=== PATIENT | male | born 1955 | race Caucasian/White ===

== ENCOUNTER → 2023-05-19 06:41 | Outpatient (REF) | payer MEDICARE, SELFPAY | LOC: MRI 06:41 | PROVIDERS: ATTENDING PHYSICIAN Physician Assistant Surgical; FAMILY PHYSICIAN Registered Nurse | DX: Z96.652 Presence of left artificial knee joint (principal) | CPT/HCPCS: 73721 ==

== ENCOUNTER → 2023-06-09 08:33 | Outpatient (REF) | payer MEDICARE, SELFPAY ==
[2023-06-09 10:34] LABS: PSA, Total - Diagnostic 7.39 ng/ml (0.0-4.0)
== END ==
LOC: REG 08:33
PROVIDERS: ATTENDING PHYSICIAN Specialist; FAMILY PHYSICIAN Registered Nurse
DX: R97.20 Elevated prostate specific antigen [PSA] (principal)
CPT/HCPCS: 36415; 84153

== ENCOUNTER → 2023-06-30 07:49 | Outpatient (REF) | payer MEDICARE, SELFPAY ==
[2023-06-30 09:19] LABS: % Basophils 0.8 % (0-2); % Eosinophils 3.2 % (0-6); % Immature Granulocytes 0.2 % (0-0.5); % Lymphocytes 24.2 % (20.5-51.1); % Monocytes 10.8 % (1.7-9.3); % Neutrophils 60.8 % (42.2-75.2); Absolute Eosinophils 0.2 10^3/uL (0-0.7); Absolute Lymphocytes 1.2 10^3/uL (1.2-3.4); Absolute Monocytes 0.5 10^3/uL (0.1-0.6); Hematocrit 39.9 % (39.0-52.0); Hemoglobin 14.1 g/dL (13.0-18.0); Mean Corp Hgb Conc. 35.3 g/dL (33.0-37.0); Mean Corpuscular Hgb 30.7 pg (27.0-31.0); Mean Corpuscular Volume 86.7 fL (80.0-94.0); Mean Platelet Volume 9.6 fL (7.4-10.4); Nucleated Red Blood Cells % 0 % (-); Platelet Count 215 10^3/uL (130-400); Red Cell Dist. Width 12.7 % (11.5-14.5)
[2023-06-30 10:03] LABS: ALT (SGPT) 22 U/L (0-50); AST (SGOT) 29 U/L (17-59); Albumin 4.1 g/dl (3.5-5.0); Alkaline Phosphatase 52 U/L (38-126); Blood Urea Nitrogen 23 mg/dl (9-20); Calcium 9.4 mg/dl (8.4-10.2); Carbon Dioxide 31 mmol/L (22-30); Chloride 101 mmol/L (98-107); Glucose 105 mg/dl (70-99); HDL Cholesterol 53 mg/dl; LDL Cholesterol, Calculated 104 mg/dl; Potassium 4.7 mmol/L (3.5-5.1); Sodium 138 mmol/L (135-145); Total Bilirubin 1.1 mg/dl (0.2-1.3); Total Cholesterol 176 mg/dl (50-199); Total Protein 6.1 g/dl (6.3-8.2); Triglyceride 99 mg/dl (10-149); Very Low Density Lipoprotein 19 mg/dl (0-30); eGFR > 60.00
[2023-06-30 10:20] LABS: Vitamin D, 25-OH*** 58.1 ng/mL (30-80)
[2023-06-30 10:33] LABS: PSA, Total - Screen 8.51 ng/ml (0.0-4.0); TSH Reflex To Free T4 1.52 uIU/ml (0.47-4.68)
== END ==
LOC: REG 07:49
PROVIDERS: ATTENDING PHYSICIAN Registered Nurse
DX: E78.5 Hyperlipidemia, unspecified (principal); E55.9 Vitamin D deficiency, unspecified; R73.01 Impaired fasting glucose; Z80.42 Family history of malignant neoplasm of prostate; Z12.5 Encounter for screening for malignant neoplasm of prostate
CPT/HCPCS: 36415; 80053; 80061; 82306; 84443; 85025; G0103

== ENCOUNTER → 2023-08-18 07:52 | Outpatient (REF) | payer MEDICARE, SELFPAY ==
[2023-08-18 09:24] LABS: C-Reactive Protein < 5.00 mg/L (0.0-10.00)
[2023-08-18 11:12] LABS: Erythrocyte Sed Rate 11 mm/hour (0-20)
[2023-08-18 14:57] LABS: Rheumatoid Agglutinin Less Than 10 IU (<10 IU)
[2023-08-19 20:51] LABS: ANA, IgG Reflex to HEp-2 Detected (None Detected)
[2023-08-20 01:48] LABS: CCP Antibody IgG/IgA 4 Units (0-19)
[2023-08-20 21:39] LABS: ANA, HEp-2, IgG <1:80 (<1:80)
== END ==
LOC: REG 07:52
PROVIDERS: ATTENDING PHYSICIAN Registered Nurse
DX: M19.049 Primary osteoarthritis, unspecified hand (principal)
CPT/HCPCS: 36415; 73120; 85652; 86038; 86039; 86140; 86200; 86430

== ENCOUNTER → 2023-12-12 07:30 | Outpatient (REF) | payer MEDICARE, SELFPAY ==
[2023-12-12 09:35] LABS: PSA, Total - Diagnostic 8.87 ng/ml (0.0-4.0)
== END ==
LOC: REG 07:30
PROVIDERS: ATTENDING PHYSICIAN Specialist; FAMILY PHYSICIAN Registered Nurse
DX: R97.20 Elevated prostate specific antigen [PSA] (principal)
CPT/HCPCS: 36415; 84153

== ENCOUNTER → 2024-03-15 18:58 | Outpatient (REF) | payer MEDICARE, SELFPAY | LOC: MRI 18:58 | PROVIDERS: ATTENDING PHYSICIAN Family Medicine; FAMILY PHYSICIAN Registered Nurse | DX: R51.9 Headache, unspecified (principal) | CPT/HCPCS: 70551 ==

== ENCOUNTER → 2024-03-16 09:31 | Outpatient (REF) | payer MEDICARE, SELFPAY ==
[2024-03-16 10:03] LABS: % Basophils 0.9 % (0-2); % Eosinophils 1.7 % (0-6); % Immature Granulocytes 0.3 % (0-0.5); % Lymphocytes 24.1 % (20.5-51.1); % Monocytes 10.7 % (1.7-9.3); % Neutrophils 62.3 % (42.2-75.2); Absolute Basophils 0.1 10^3/uL (0-0.2); Absolute Eosinophils 0.1 10^3/uL (0-0.7); Absolute Lymphocytes 1.5 10^3/uL (1.2-3.4); Absolute Monocytes 0.7 10^3/uL (0.1-0.6); Absolute Neutrophils 3.9 10^3/uL (1.4-6.5); Hematocrit 44.1 % (39.0-52.0); Hemoglobin 15.2 g/dL (13.0-18.0); Mean Corp Hgb Conc. 34.5 g/dL (33.0-37.0); Mean Corpuscular Hgb 30.8 pg (27.0-31.0); Mean Corpuscular Volume 89.3 fL (80.0-94.0); Mean Platelet Volume 8.7 fL (7.4-10.4); Nucleated Red Blood Cells % 0 % (-); Platelet Count 234 10^3/uL (130-400); Red Blood Cell Count 4.94 10^6/uL (4.70-6.10); Red Cell Dist. Width 12.7 % (11.5-14.5); White Blood Cell Count 6.3 10^3/uL (4.8-10.8)
[2024-03-16 11:04] LABS: Erythrocyte Sed Rate 1 mm/hour (0-20)
[2024-03-16 15:11] LABS: ALT (SGPT) 31 U/L (0-50); AST (SGOT) 27 U/L (17-59); Albumin 4.9 g/dl (3.5-5.0); Alkaline Phosphatase 49 U/L (38-126); Blood Urea Nitrogen 22 mg/dl (9-20); Calcium 9.9 mg/dl (8.4-10.2); Carbon Dioxide 29 mmol/L (22-30); Chloride 101 mmol/L (98-107); Glucose 88 mg/dl (70-99); Potassium 4.6 mmol/L (3.5-5.1); Sodium 140 mmol/L (135-145); Total Bilirubin 0.9 mg/dl (0.2-1.3); Total Protein 7.2 g/dl (6.3-8.2); eGFR > 60.00
[2024-03-16 15:15] LABS: C-Reactive Protein < 5.00 mg/L (0.0-10.00)
[2024-03-18 11:41] LABS: Lyme Antibody Screen, EIA Negative (Negative)
== END ==
LOC: REG 09:31
PROVIDERS: ATTENDING PHYSICIAN Family Medicine
DX: R51.9 Headache, unspecified (principal)
CPT/HCPCS: 36415; 80053; 85025; 85652; 86140; 86618

== ENCOUNTER → 2024-05-04 09:10 | Outpatient (REF) | payer MEDICARE, SELFPAY ==
[2024-05-04 10:01] LABS: % Basophils 1.3 % (0-2); % Eosinophils 2.2 % (0-6); % Immature Granulocytes 0.4 % (0-0.5); % Lymphocytes 31.6 % (20.5-51.1); % Monocytes 11.7 % (1.7-9.3); % Neutrophils 52.8 % (42.2-75.2); Absolute Basophils 0.1 10^3/uL (0-0.2); Absolute Eosinophils 0.1 10^3/uL (0-0.7); Absolute Lymphocytes 1.4 10^3/uL (1.2-3.4); Absolute Monocytes 0.5 10^3/uL (0.1-0.6); Absolute Neutrophils 2.4 10^3/uL (1.4-6.5); Hematocrit 41.8 % (39.0-52.0); Hemoglobin 14.1 g/dL (13.0-18.0); Mean Corp Hgb Conc. 33.7 g/dL (33.0-37.0); Mean Corpuscular Hgb 30.1 pg (27.0-31.0); Mean Corpuscular Volume 89.3 fL (80.0-94.0); Mean Platelet Volume 9.4 fL (7.4-10.4); Nucleated Red Blood Cells % 0 % (-); Platelet Count 220 10^3/uL (130-400); Red Blood Cell Count 4.68 10^6/uL (4.70-6.10); Red Cell Dist. Width 13.2 % (11.5-14.5); White Blood Cell Count 4.5 10^3/uL (4.8-10.8)
[2024-05-04 10:35] LABS: ALT (SGPT) 31 U/L (0-50); AST (SGOT) 32 U/L (17-59); Alkaline Phosphatase 52 U/L (38-126); Blood Urea Nitrogen 16 mg/dl (9-20); Calcium 9.3 mg/dl (8.4-10.2); Carbon Dioxide 31 mmol/L (22-30); Chloride 101 mmol/L (98-107); Glucose 80 mg/dl (70-99); Potassium 4.8 mmol/L (3.5-5.1); Sodium 140 mmol/L (135-145); Total Bilirubin 1.2 mg/dl (0.2-1.3); Total Protein 7.2 g/dl (6.3-8.2); eGFR > 60.00
[2024-05-04 11:02] LABS: PSA, Total - Diagnostic 8.82 ng/ml (0.0-4.0)
== END ==
LOC: REG 09:10
PROVIDERS: ATTENDING PHYSICIAN Specialist; FAMILY PHYSICIAN Specialist; OTHER PHYSICIAN Registered Nurse; REFERRING PHYSICIAN Internal Medicine Rheumatology
DX: R97.20 Elevated prostate specific antigen [PSA] (principal); Z01.818 Encounter for other preprocedural examination; M25.50 Pain in unspecified joint; Z51.81 Encounter for therapeutic drug level monitoring
CPT/HCPCS: 36415; 80053; 84153; 85025; 93005

== ENCOUNTER → 2024-07-06 08:48 | Outpatient (REF) | payer MEDICARE, SELFPAY ==
[2024-07-06 09:36] LABS: % Eosinophils 2.1 % (0-6); % Immature Granulocytes 0.2 % (0-0.5); % Lymphocytes 29.9 % (20.5-51.1); % Neutrophils 55.8 % (42.2-75.2); Absolute Basophils 0.1 10^3/uL (0-0.2); Absolute Eosinophils 0.1 10^3/uL (0-0.7); Absolute Lymphocytes 1.4 10^3/uL (1.2-3.4); Absolute Monocytes 0.5 10^3/uL (0.1-0.6); Absolute Neutrophils 2.7 10^3/uL (1.4-6.5); Hematocrit 43.4 % (39.0-52.0); Hemoglobin 14.8 g/dL (13.0-18.0); Mean Corp Hgb Conc. 34.1 g/dL (33.0-37.0); Mean Corpuscular Hgb 30.3 pg (27.0-31.0); Mean Corpuscular Volume 88.8 fL (80.0-94.0); Nucleated Red Blood Cells % 0 % (-); Platelet Count 244 10^3/uL (130-400); Red Blood Cell Count 4.89 10^6/uL (4.70-6.10); Red Cell Dist. Width 12.2 % (11.5-14.5); White Blood Cell Count 4.8 10^3/uL (4.8-10.8)
[2024-07-06 10:45] LABS: ALT (SGPT) 23 U/L (0-50); AST (SGOT) 21 U/L (17-59); Albumin 4.8 g/dl (3.5-5.0); Alkaline Phosphatase 63 U/L (38-126); Blood Urea Nitrogen 30 mg/dl (9-20); Calcium 9.9 mg/dl (8.4-10.2); Carbon Dioxide 27 mmol/L (22-30); Chloride 105 mmol/L (98-107); Glucose 99 mg/dl (70-99); HDL Cholesterol 47 mg/dl; LDL Cholesterol, Calculated 144 mg/dl; Potassium 4.4 mmol/L (3.5-5.1); Sodium 141 mmol/L (135-145); Total Bilirubin 0.7 mg/dl (0.2-1.3); Total Cholesterol 211 mg/dl (50-199); Total Protein 6.7 g/dl (6.3-8.2); Triglyceride 100 mg/dl (10-149); Very Low Density Lipoprotein 20 mg/dl (0-30); eGFR > 60.00
[2024-07-06 10:49] LABS: Vitamin D, 25-OH*** 70.7 ng/mL (30-80)
[2024-07-06 11:02] LABS: PSA, Total - Screen 9.57 ng/ml (0.0-4.0); TSH Reflex To Free T4 1.46 uIU/ml (0.47-4.68)
[2024-07-06 11:12] LABS: Glycohemoglobin (HgbA1c) 5.6 % (4.0-5.6)
== END ==
LOC: REG 08:48
PROVIDERS: ATTENDING PHYSICIAN Registered Nurse; OTHER PHYSICIAN Specialist
DX: E78.5 Hyperlipidemia, unspecified (principal); I10 Essential (primary) hypertension; E55.9 Vitamin D deficiency, unspecified; R73.01 Impaired fasting glucose; Z12.5 Encounter for screening for malignant neoplasm of prostate
CPT/HCPCS: 36415; 80053; 80061; 82306; 83036; 84443; 85025; G0103

== ENCOUNTER → 2024-09-01 10:16 | Outpatient (REF) | payer MEDICARE, SELFPAY | LOC: MRI 10:16 | PROVIDERS: ATTENDING PHYSICIAN Specialist; FAMILY PHYSICIAN Registered Nurse | DX: M25.522 Pain in left elbow (principal) | CPT/HCPCS: 73221 ==

== ENCOUNTER → 2024-09-13 08:35 | Outpatient (REF) | payer MEDICARE, SELFPAY ==
[2024-09-13 09:14] LABS: % Basophils 1.4 % (0-2); % Eosinophils 3.5 % (0-6); % Immature Granulocytes 0.3 % (0-0.5); % Monocytes 11.6 % (1.7-9.3); % Neutrophils 50.2 % (42.2-75.2); Absolute Basophils 0.1 10^3/uL (0-0.2); Absolute Eosinophils 0.1 10^3/uL (0-0.7); Absolute Lymphocytes 1.2 10^3/uL (1.2-3.4); Absolute Monocytes 0.4 10^3/uL (0.1-0.6); Absolute Neutrophils 1.9 10^3/uL (1.4-6.5); Hematocrit 41.8 % (39.0-52.0); Hemoglobin 14.4 g/dL (13.0-18.0); Mean Corp Hgb Conc. 34.4 g/dL (33.0-37.0); Mean Corpuscular Hgb 30.4 pg (27.0-31.0); Mean Corpuscular Volume 88.2 fL (80.0-94.0); Mean Platelet Volume 9.3 fL (7.4-10.4); Nucleated Red Blood Cells % 0 % (-); Platelet Count 217 10^3/uL (130-400); Red Blood Cell Count 4.74 10^6/uL (4.70-6.10); Red Cell Dist. Width 12.7 % (11.5-14.5); White Blood Cell Count 3.7 10^3/uL (4.8-10.8)
[2024-09-13 11:34] LABS: ALT (SGPT) 21 U/L (0-50); AST (SGOT) 22 U/L (17-59); Albumin 4.5 g/dl (3.5-5.0); Alkaline Phosphatase 49 U/L (38-126); Blood Urea Nitrogen 22 mg/dl (9-20); Calcium 9.9 mg/dl (8.4-10.2); Carbon Dioxide 28 mmol/L (22-30); Chloride 106 mmol/L (98-107); Glucose 87 mg/dl (70-99); Sodium 140 mmol/L (135-145); Total Bilirubin 0.7 mg/dl (0.2-1.3); Total Protein 6.6 g/dl (6.3-8.2); eGFR > 60.00
== END ==
LOC: REG 08:35
PROVIDERS: ATTENDING PHYSICIAN Internal Medicine Rheumatology; FAMILY PHYSICIAN Registered Nurse
DX: M19.041 Primary osteoarthritis, right hand (principal); M25.50 Pain in unspecified joint; Z51.81 Encounter for therapeutic drug level monitoring
CPT/HCPCS: 36415; 80053; 85025

== ENCOUNTER → 2024-11-17 08:49 | Outpatient (REF) | payer MEDICARE, SELFPAY ==
[2024-11-17 09:44] LABS: Hematocrit 36.0 % (39.0-52.0); Hemoglobin 12.3 g/dL (13.0-18.0); Mean Corp Hgb Conc. 34.2 g/dL (33.0-37.0); Mean Corpuscular Volume 85.9 fL (80.0-94.0); Red Cell Dist. Width 13.7 % (11.5-14.5)
[2024-11-17 10:04] LABS: Platelet Count 87 10^3/uL (130-400)
[2024-11-17 10:05] LABS: Absolute Neutrophils -Man Diff 2.3 10^3/uL (1.4-6.5); Normal RBC Morphology Yes; Platelets Checked Yes; Total Cells Counted 100
[2024-11-17 10:30] LABS: PSA, Total - Diagnostic 8.38 ng/ml (0.0-4.0)
[2024-11-17 11:07] LABS: ALT (SGPT) 31 U/L (0-50); AST (SGOT) 31 U/L (17-59); Albumin 4.1 g/dl (3.5-5.0); Alkaline Phosphatase 84 U/L (38-126); Blood Urea Nitrogen 23 mg/dl (9-20); Calcium 9.1 mg/dl (8.4-10.2); Carbon Dioxide 28 mmol/L (22-30); Chloride 103 mmol/L (98-107); Glucose 105 mg/dl (70-99); HDL Cholesterol 22 mg/dl; LDL Cholesterol, Calculated 87 mg/dl; Potassium 4.4 mmol/L (3.5-5.1); Sodium 139 mmol/L (135-145); Total Protein 6.4 g/dl (6.3-8.2); Very Low Density Lipoprotein 24 mg/dl (0-30); eGFR > 60.00
[2024-11-18 15:54] LABS: LDH 377 U/L (120-246)
== END ==
LOC: REG 08:49
PROVIDERS: ATTENDING PHYSICIAN Specialist; FAMILY PHYSICIAN Registered Nurse; REFERRING PHYSICIAN Internal Medicine Rheumatology
DX: R97.20 Elevated prostate specific antigen [PSA] (principal); M19.041 Primary osteoarthritis, right hand; M25.50 Pain in unspecified joint; M25.512 Pain in left shoulder; Z51.81 Encounter for therapeutic drug level monitoring; E78.5 Hyperlipidemia, unspecified; R73.01 Impaired fasting glucose
CPT/HCPCS: 36415; 80053; 80061; 82248; 83010; 83615; 84153; 85025

== ENCOUNTER → 2024-11-19 09:42 | Outpatient (REF) | payer MEDICARE, SELFPAY ==
[2024-11-19 10:35] LABS: Hematocrit 35.3 % (39.0-52.0); Hemoglobin 12.2 g/dL (13.0-18.0); Mean Corp Hgb Conc. 34.6 g/dL (33.0-37.0); Mean Corpuscular Volume 85.7 fL (80.0-94.0); Platelet Count 107 10^3/uL (130-400); Red Cell Dist. Width 13.7 % (11.5-14.5)
[2024-11-19 10:40] LABS: INR 1.19; PT 15.4 Sec (11.4-14.6)
[2024-11-19 10:41] LABS: APTT 37.2 Sec (23.4-35.0); Fibrinogen 684 MG/DL (199-459)
[2024-11-19 10:44] LABS: D-Dimer 0.84 ug/mlFEU (0.00-0.50)
[2024-11-19 11:31] LABS: Absolute Neutrophils -Man Diff 2.0 10^3/uL (1.4-6.5); Normal RBC Morphology Yes; Platelets Checked Yes; Total Cells Counted 100
== END ==
LOC: REG 09:42
PROVIDERS: ATTENDING PHYSICIAN Registered Nurse; OTHER PHYSICIAN Internal Medicine Rheumatology; OTHER PHYSICIAN Specialist
DX: D69.6 Thrombocytopenia, unspecified (principal); D59.0 Drug-induced autoimmune hemolytic anemia
CPT/HCPCS: 36415; 85025; 85379; 85384; 85610; 85730

== ENCOUNTER → 2024-12-07 11:16 | Outpatient (REF) | payer MEDICARE, SELFPAY ==
[2024-12-07 12:11] LABS: Hematocrit 36.4 % (39.0-52.0); Hemoglobin 12.8 g/dL (13.0-18.0); Mean Corp Hgb Conc. 35.2 g/dL (33.0-37.0); Mean Corpuscular Volume 86.1 fL (80.0-94.0); Nucleated Red Blood Cells % 0 % (-); Platelet Count 202 10^3/uL (130-400); Red Cell Dist. Width 14.2 % (11.5-14.5)
[2024-12-07 13:10] LABS: PT 14.7 Sec (11.4-14.6)
[2024-12-07 13:11] LABS: APTT 28.4 Sec (23.4-35.0); Fibrinogen 309 MG/DL (199-459)
[2024-12-07 13:44] LABS: D-Dimer < 0.27 ug/mlFEU (0.00-0.50)
[2024-12-07 14:13] LABS: INR 1.12
[2024-12-07 15:05] LABS: ALT (SGPT) 40 U/L (0-50); AST (SGOT) 34 U/L (17-59); Albumin 4.7 g/dl (3.5-5.0); Alkaline Phosphatase 70 U/L (38-126); Blood Urea Nitrogen 21 mg/dl (9-20); Calcium 10.1 mg/dl (8.4-10.2); Carbon Dioxide 24 mmol/L (22-30); Chloride 107 mmol/L (98-107); Glucose 130 mg/dl (70-99); LDH 249 U/L (120-246); Potassium 3.9 mmol/L (3.5-5.1); Sodium 138 mmol/L (135-145); Total Protein 7.0 g/dl (6.3-8.2); eGFR > 60.00
== END ==
LOC: REG 11:16
PROVIDERS: ATTENDING PHYSICIAN Internal Medicine Rheumatology; FAMILY PHYSICIAN Registered Nurse; REFERRING PHYSICIAN Specialist
DX: D59.9 Acquired hemolytic anemia, unspecified (principal); R17 Unspecified jaundice; T80.69XA Other serum reaction due to other serum, initial encounter
CPT/HCPCS: 36415; 80053; 82248; 83010; 83615; 85025; 85379; 85384; 85610; 85730

== ENCOUNTER → 2025-01-14 08:09 | Outpatient (REF) | payer MEDICARE, SELFPAY ==
[2025-01-14 09:04] LABS: Hematocrit 44.1 % (39.0-52.0); Hemoglobin 14.9 g/dL (13.0-18.0); Mean Corp Hgb Conc. 33.8 g/dL (33.0-37.0); Mean Corpuscular Volume 87.5 fL (80.0-94.0); Nucleated Red Blood Cells % 0 % (-); Platelet Count 206 10^3/uL (130-400); Red Cell Dist. Width 12.7 % (11.5-14.5)
[2025-01-14 09:23] LABS: ALT (SGPT) 26 U/L (0-50); AST (SGOT) 22 U/L (17-59); Albumin 4.7 g/dl (3.5-5.0); Alkaline Phosphatase 53 U/L (38-126); Blood Urea Nitrogen 26 mg/dl (9-20); Calcium 9.9 mg/dl (8.4-10.2); Carbon Dioxide 29 mmol/L (22-30); Chloride 107 mmol/L (98-107); Glucose 113 mg/dl (70-99); HDL Cholesterol 60 mg/dl; LDL Cholesterol, Calculated 152 mg/dl; Potassium 5.0 mmol/L (3.5-5.1); Sodium 140 mmol/L (135-145); Total Protein 7.0 g/dl (6.3-8.2); Very Low Density Lipoprotein 15 mg/dl (0-30); eGFR > 60.00
== END ==
LOC: REG 08:09
PROVIDERS: ATTENDING PHYSICIAN Registered Nurse
DX: E78.00 Pure hypercholesterolemia, unspecified (principal); F41.1 Generalized anxiety disorder; M15.9 Polyosteoarthritis, unspecified; D69.6 Thrombocytopenia, unspecified; E78.5 Hyperlipidemia, unspecified; R73.01 Impaired fasting glucose
CPT/HCPCS: 36415; 80053; 80061; 85025

== ENCOUNTER 2025-01-27 17:41 | Emergency (ER) | payer MEDICARE, SELFPAY ==
[2025-01-27 17:47] VITALS: BP 156/117
[2025-01-27 18:05] VITALS: BMI 24.7
--- NOTE | 2025-01-27 18:11 | ED.SKININJ ---
HPI-Injury
<Fercho Hallman DO - Last Filed: 01/27/25 22:32>
General
Chief Complaint: Skin Surface Trauma
Source: patient and records
Exam Limitations: none
Time Seen by Provider: 01/27/25 17:53
Nursing documentation reviewed up to this point in time: agreed with
History of Present Illness-Injury
Is this injury a work related problem?: No
Is pt an associate of [facility]?: No
Initial Injury comments:
69-year-old male conjm-wvfm-xdroahls injury to his left hand with a router doing woodworking just prior to arrival he is seen Dr. Meadows for knee replacement he is seeing Dr. Henderson for shoulder rotator cuff repair unsure of his last tetanus
Has a wound to the extensor surface between his index and long finger on his left hand he is unable to extend his long finger
Past History
<Fercho Hallman DO - Last Filed: 01/27/25 22:32>
Past History
ED Past Surgical History: Orthopedic
Social History
Tobacco: Non-smoker
Alcohol: None
Drug: None
Personal:
Living: with family
Employment: Retired
Phy Exam
<DO Anand Aggarwal Last Filed: 01/27/25 22:32>
Physical Exam
Physical Exam:
Physical Exam
General: no apparent distress, not acutely ill
Lungs: no acute respiratory distress.
Neuro: alert and oriented. no focal neurological deficits
Skin: no rash
Psychiatric: well kept. interactive and cooperative
Extremities: Left hand extensor surface 3 cm laceration webspace between index finger and the long finger inability to extend his long finger cap refill appears intact all fingers
Course
<Fercho Hallman DO - Last Filed: 01/27/25 22:32>
Orders/Labs/Results
Orders:
Orders
01/27/25 17:58
HYDROmorphone [Dilaudid] 1 mg IV NOW STA
Ondansetron Injectable [Zofran] 4 mg IV NOW STA
Hand, Left 3 View [CR Hand - Left Min 3 Views] Urgent
Comment:
Reason For Exam: router to hand
01/27/25 17:59
CeFAZolin 2 GRAM [Ancef] 2 grams in 10 ml IV NOW
Tetanus/Diphth/Acelpertussis [Adacel] 0.5 ml IM .ONCE ONE
01/27/25 19:30
HYDROmorphone [Dilaudid] 1 mg IV NOW STA
01/27/25 21:29
Acetaminophen 1000MG/100Ml [Ofirmev] 1,000 mg in 100 ml IV ONCE
Acetaminophen IV Indication:: No MT & No Enteral Access
01/27/25 21:30
Oxycodone/Acetaminophen [Percocet 5/325] 1 tablet PO NOW STA
Vital Signs
Initial and Last Documented VS:
Initial Vital Signs
Temp Pulse Resp BP Pulse Ox
97.7 F 61 20 156/117 97
01/27/25 17:47 01/27/25 17:47 01/27/25 17:47 01/27/25 17:47 01/27/25 17:47
Last Documented Vital Signs
Temp Pulse Resp BP Pulse Ox
97.7 F 66 18 144/98 100
01/27/25 17:47 01/27/25 22:18 01/27/25 22:18 01/27/25 22:18 01/27/25 22:18
<Yesenia Mcnally PA-C - Last Filed: 01/28/25 00:14>
Orders/Labs/Results
Orders:
Orders
01/27/25 17:58
HYDROmorphone [Dilaudid] 1 mg IV NOW STA
Ondansetron Injectable [Zofran] 4 mg IV NOW STA
Hand, Left 3 View [CR Hand - Left Min 3 Views] Urgent
Comment:
Reason For Exam: router to hand
01/27/25 17:59
CeFAZolin 2 GRAM [Ancef] 2 grams in 10 ml IV NOW
Tetanus/Diphth/Acelpertussis [Adacel] 0.5 ml IM .ONCE ONE
01/27/25 19:30
HYDROmorphone [Dilaudid] 1 mg IV NOW STA
01/27/25 21:29
Acetaminophen 1000MG/100Ml [Ofirmev] 1,000 mg in 100 ml IV ONCE
Acetaminophen IV Indication:: No MT & No Enteral Access
01/27/25 21:30
Oxycodone/Acetaminophen [Percocet 5/325] 1 tablet PO NOW STA
Vital Signs
Initial and Last Documented VS:
Initial Vital Signs
Temp Pulse Resp BP Pulse Ox
97.7 F 61 20 156/117 97
01/27/25 17:47 01/27/25 17:47 01/27/25 17:47 01/27/25 17:47 01/27/25 17:47
Last Documented Vital Signs
Temp Pulse Resp BP Pulse Ox
97.7 F 66 18 144/98 100
01/27/25 17:47 01/27/25 22:18 01/27/25 22:18 01/27/25 22:18 01/27/25 22:18
Procedures
<Fercho Hallman, DO - Last Filed: 01/27/25 22:32>
Laceration Closure
Left Hand:
Status of Wound: clean
Size of Wound in cm: 4
Description of Wound Edges: ragged, macerated and other (Tissue loss)
Preparation: cleaned with saline
Anesthesia: 1% Lidocaine and Marcaine
Revision/Debridement: minor revision
Type of Closure: single layer closure
Skin Closure Material: 4-0 nylon
Number of sutures: 10
Additional information:
Digital block wound copiously irrigated, skin loosely approximated as able due to tissue loss
Digital Block
Indiction for Digital Block: pain relief
Type of anesthesia: Marcaine
Complications: none- good anesthesia
<Fercho Hallman DO - Last Filed: 01/27/25 22:32>
MDM/Problems Addressed
Differential Diagnosis Includes:
Laceration fracture tendon injury dislocation
MDM/Problems Addressed:
Hand injury
<Fercho Hallman DO - Last Filed: 01/27/25 22:32>
*Pulse Oximetry
SaO2: 97
Oxygen Mode of Delivery: Room air
<Yesenia Mcnally PA-C - Last Filed: 01/28/25 00:14>
*Pulse Oximetry
Patient hypoxic: no
*Critical Care Note
Total Time (30-74mins, 75-104mins- exclusive of procedures): Not Applicable
<Yesenia Mcnally PA-C - Last Filed: 01/28/25 00:14>
Update Note
Update Note:
Assisted Dr. Hallman with laceration repair. Hand lacerations irrigated extensively with saline. Skin approximated with 4-0 nylon sutures. Six sutures applied to laceration to webbed space between middle and index finger. Four sutures placed to
laceration at the DIP joint of index finger. Laceration to base of index finger unable to be completed closed due to avulsed skin.
ED Attending Note
<Fercho Hallman DO - Last Filed: 01/27/25 22:32>
-
Portions of this chart may have been created with voice recognition software.� Occasional wrong word or��sound alike� substitutions may have occurred due to the inherent limitations of voice recognition software.
Discharge Plan
Departure
Patient Disposition: Home (Routine Discharge)
Date of Disposition: 01/27/25
Time of Disposition: 21:10
Patient with high blood pressure during this ER visit?: No
Condition: Good
Discharge Problem:
Extensor tendon laceration of hand with open wound
Instructions: Laceration Repair With Stitches (DC)
Prescriptions:
New
oxycodone-acetaminophen [Percocet] 5-325 mg tablet
1 tab PO Q6HPRN PRN (Reason: pain) Qty: 14 0RF
cephalexin 500 mg capsule
500 mg PO Q8H 7 Days Qty: 21 0RF
ibuprofen 600 mg tablet
600 mg PO Q8H PRN (Reason: Pain) Qty: 20 0RF
oxycodone-acetaminophen [Percocet] 5-325 mg tablet
1 tab PO Q6HPRN PRN (Reason: pain) Qty: 20 0RF
Referrals:
Butch Maya MD [Active, Orthopedics] - Tomorrow
UNKNOWN - PT DOES,NOT KNOW [Unknown Provider]
Activity Restrictions/Additional Instructions:
Call [facility] orthopedics tomorrow morning at 730 to schedule an urgent visit with Dr. Maya or Dr. Yoon
Interventions
Interventions:
*Risk Screen - Suicide Last Done: 01/27/25 17:51
*General Assessment Last Done: 01/27/25 19:00
*Neglect/Abuse Screening Last Done: 01/27/25 17:47
*ED- Fall Risk Assessment Last Done: 01/27/25 19:00
*ED COVID-19 Vaccine History Last Done: 01/27/25 19:00
*ED Influenza Vaccine History Last Done: 01/27/25 19:00
*Nursing Disposition Last Done: 01/27/25 22:18
ED-Skin Assessment Last Done: 01/27/25 19:01
Discharge Date and Time
Discharge Date/Time: 01/27/25 22:20
Print Language: BANGLADESHI
[2025-01-27] MEDS: DILAUDID 1 MG IV ×2 (18:15→19:32)
[2025-01-27] MEDS: ZOFRAN 4 MG IV (18:16)
[2025-01-27] MEDS: ANCEF 10 IV (18:16)
[2025-01-27] MEDS: ADACEL 0.5 ML IM (18:30)
[2025-01-27 19:40] VITALS: BP 136/82
[2025-01-27] MEDS: PERCOCET 5/325 1 TABLET PO (22:13)
[2025-01-27 22:18] VITALS: BP 144/98
== END 2025-01-27 22:20 | disposition home or self-care (01) ==
LOC: EMR 17:41
PROVIDERS: EMERGENCY PHYSICIAN Emergency Medicine; FAMILY PHYSICIAN Registered Nurse
DX: S61.412A Laceration without foreign body of left hand, initial encounter (principal); S66.321A Laceration of extensor muscle, fascia and tendon of left index finger at wrist and hand level, initial encounter; S66.323A Laceration of extensor muscle, fascia and tendon of left middle finger at wrist and hand level, initial encounter; W29.8XXA Contact with other powered hand tools and household machinery, initial encounter; Y93.D3 Activity, furniture building and finishing; Z23 Encounter for immunization
CPT/HCPCS: 99284; 12002; 96374; 96375 ×2; 96376; 90471; 73130; 90715

== ENCOUNTER 2025-01-28 11:10 | Outpatient (RCR) | payer MEDICARE, SELFPAY | END 2025-01-28 23:59 | disposition home or self-care (01) | LOC: ROT 11:10 | PROVIDERS: ATTENDING PHYSICIAN Orthopaedic Surgery Hand Surgery; FAMILY PHYSICIAN Registered Nurse | DX: M79.642 Pain in left hand (principal); S61.211D Laceration without foreign body of left index finger without damage to nail, subsequent encounter; Z73.6 Limitation of activities due to disability; W45.8XXD Other foreign body or object entering through skin, subsequent encounter | CPT/HCPCS: 97760 ==